=== PATIENT | female | born 1940 | race Asian ===

== ENCOUNTER 2023-01-02 09:38 | Inpatient (IN) | payer OTHER ==
[2023-01-02 10:00] VITALS: BMI 24.0
[2023-01-02 12:19] LABS: VENOUS BASE EXCESS -0.4 mmol/L (-2-2); VENOUS O2 SATURATION 83.4 % (70-80); VENOUS PCO2 42.5 mmHg (38-52); VENOUS PH 7.384 (7.310-7.410)
[2023-01-02 12:22] LABS: BASO % 0.6 % (0-2.0); EOS % 1.2 % (0-4.5); HEMATOCRIT 39.3 % (32.4-45.2); HEMOGLOBIN 13.4 GM/dL (10.7-15.3); MCHC 34.1 g/dl (32.0-36.0); MEAN CELL VOLUME 96.9 fl (80-96); MEAN PLT VOLUME 6.2 fl (7.5-11.1); MONO % 7.3 % (3.8-10.2); NEUT % 71.9 % (42.8-82.8); PLATELET COUNT 309 10^3/uL (134-434); RBC 4.06 M/mm3 (3.60-5.2); RDW 13.9 % (11.6-15.6); WHITE BLOOD COUNT 6.3 K/mm3 (4.0-10.0)
[2023-01-02 12:25] LABS: EPI CELLS 1 /uL (0-25.1); HYALINE CASTS 0 /uL (0-3.1); PH,URINE 6.5 (5.0-8.0); URINE APPEARANCE CLEAR; URINE BACTERIA 2 /uL (0-1359); URINE BILIRUBIN NEGATIVE (NEGATIVE); URINE COLOR YELLOW; URINE GLUCOSE (UA) NEGATIVE (NEGATIVE); URINE KETONE NEGATIVE (NEGATIVE); URINE LEUK ESTERASE NEGATIVE (NEGATIVE); URINE NITRITE NEGATIVE (NEGATIVE); URINE PROTEIN NEGATIVE (NEGATIVE); URINE RBC 36 /uL (0-23.9); URINE UROBILINOGEN 0.2 mg/dL (0.2-1.0); URINE WBC 1 /uL (0-25.8)
[2023-01-02 12:29] LABS: INR 0.99 (0.83-1.09); PROTHROMBIN TIME (PATIENT) 11.5 SEC (9.7-13.0)
[2023-01-02 12:31] LABS: ACTIVATED PTT 28.1 SECONDS (25.2-36.5)
[2023-01-02 13:46] LABS: ALBUMIN 3.6 g/dl (3.4-5.0); BILIRUBIN,TOTAL 0.5 mg/dL (0.2-1); BLOOD UREA NITROGEN 16.7 mg/dL (7-18); CALCIUM 9.1 mg/dL (8.5-10.1); CREATININE 0.6 mg/dL (0.55-1.3); POTASSIUM 4.8 mmol/L (3.5-5.1); TOT PROT 7.1 g/dl (6.4-8.2)
[2023-01-02 14:28] LABS: LACTIC ACID 3.5 mmol/L (0.4-2.0)
[2023-01-02 23:49] VITALS: RESP 18
[2023-01-03 08:34] LABS: BASO % 0.3 % (0-2.0); EOS % 1.6 % (0-4.5); HEMATOCRIT 42.5 % (32.4-45.2); LYMPH % 24.9 % (8-40); MCH 32.6 pg (25.7-33.7); MCHC 32.8 g/dl (32.0-36.0); MEAN CELL VOLUME 99.3 fl (80-96); MEAN PLT VOLUME 6.6 fl (7.5-11.1); MONO % 7.9 % (3.8-10.2); NEUT % 65.3 % (42.8-82.8); PLATELET COUNT 317 10^3/uL (134-434); RBC 4.28 M/mm3 (3.60-5.2); RDW 13.8 % (11.6-15.6); WHITE BLOOD COUNT 6.9 K/mm3 (4.0-10.0)
[2023-01-03 09:12] LABS: BILIRUBIN,TOTAL 0.9 mg/dL (0.2-1); TOT PROT 7.1 g/dl (6.4-8.2)
[2023-01-03 09:14] LABS: BLOOD UREA NITROGEN 10.8 mg/dL (7-18); CREATININE 0.6 mg/dL (0.55-1.3); PHOSPHOROUS 3.7 mg/dL (2.5-4.9)
[2023-01-03 09:15] LABS: ALBUMIN 3.7 g/dl (3.4-5.0); MAGNESIUM 2.2 mg/dL (1.8-2.4)
[2023-01-03] MEDS: LISINOPRIL 5 MG TABLET PO SCH (09:41)
[2023-01-03] MEDS: ENOXAPARIN NA (PORCINE) 40 MG/0.4 ML DISP.SYRIN SQ SCH (09:41)
[2023-01-03] MEDS ORDERED: MELATONIN 1 MG TABLET PO PRN (11:49)
[2023-01-03] MEDS ORDERED: SERTRALINE HCL 25 MG TABLET (FP) PO SCH (14:45)
[2023-01-03] MEDS ORDERED: MIRTAZAPINE 15 MG TABLET (FP) PO SCH (22:00)
[2023-01-03] MEDS ORDERED: QUEtiapine FUMARATE 25 MG TABLET PO SCH ×2 (22:00)
[2023-01-04 06:42] VITALS: BP 149/68; PULSE 85; TEMP 97.9
[2023-01-04 09:13] LABS: BASO % 0.4 % (0-2.0); EOS % 2.2 % (0-4.5); HEMATOCRIT 44.3 % (32.4-45.2); HEMOGLOBIN 15.2 GM/dL (10.7-15.3); LYMPH % 31.2 % (8-40); MCH 33.5 pg (25.7-33.7); MCHC 34.4 g/dl (32.0-36.0); MEAN CELL VOLUME 97.5 fl (80-96); MEAN PLT VOLUME 6.3 fl (7.5-11.1); MONO % 6.6 % (3.8-10.2); NEUT % 59.6 % (42.8-82.8); PLATELET COUNT 300 10^3/uL (134-434); RBC 4.54 M/mm3 (3.60-5.2); WHITE BLOOD COUNT 7.1 K/mm3 (4.0-10.0)
[2023-01-04] MEDS: ENOXAPARIN NA (PORCINE) 40 MG/0.4 ML DISP.SYRIN SQ SCH (09:27)
[2023-01-04] MEDS: LISINOPRIL 5 MG TABLET PO SCH (09:28)
[2023-01-04] MEDS ORDERED: SERTRALINE HCL 25 MG TABLET (FP) PO SCH (10:00)
[2023-01-04 10:15] LABS: POTASSIUM 4.4 mmol/L (3.5-5.1)
[2023-01-04 10:19] LABS: ALBUMIN 3.7 g/dl (3.4-5.0); BLOOD UREA NITROGEN 9.8 mg/dL (7-18); CALCIUM 9.6 mg/dL (8.5-10.1); MAGNESIUM 2.3 mg/dL (1.8-2.4)
[2023-01-04 10:22] LABS: CREATININE 0.8 mg/dL (0.55-1.3)
[2023-01-04 10:24] LABS: BILIRUBIN,TOTAL 0.9 mg/dL (0.2-1); TOT PROT 7.4 g/dl (6.4-8.2)
== END 2023-01-04 10:46 | disposition home or self-care (01) | DRG 881 ==
LOC: JER 09:38 → UNDOADMOB 13:36 → JERBED 13:36 → INTOOBSV 13:36 → JERBED 15:45 → J5S 17:42 → OBSVTOIN 01-03 13:36
PROVIDERS: ADMIT Internal Medicine; ATTEND Nurse Practitioner Acute Care
DX: F32.A Depression, unspecified (principal); G47.00 Insomnia, unspecified; I10 Essential (primary) hypertension
CPT/HCPCS: 0241U-QW; 36415; 70450-TC; 71045-TC-FY; 80053; 81003; 82553; 82607; 82746; 82747; 82803; 83605; 83735; 84100; 84436; 84443; 84484; 85014; 85025; 85610; 85730; 86780; 86850; 86900; 86901; 87040; 87086; 93005; 93010; 93306-TC; 97116-GP; 97162-GP; 99285-25; G0378

== ENCOUNTER 2023-01-11 11:10 | Emergency (ER) | payer OTHER ==
[2023-01-11 11:21] VITALS: BMI 25.7
[2023-01-11] MEDS ORDERED: KETOROLAC TROMETHAMINE 15 MG/ML VIAL IVPUSH ONE (11:50)
[2023-01-11] MEDS ORDERED: KETOROLAC TROMETHAMINE 15 MG/ML VIAL ONE (11:59)
[2023-01-11 13:32] LABS: BASO % 0.2 % (0-2.0); EOS % 1.3 % (0-4.5); HEMATOCRIT 36.1 % (32.4-45.2); HEMOGLOBIN 12.4 GM/dL (10.7-15.3); LYMPH % 20.9 % (8-40); MCH 33.3 pg (25.7-33.7); MCHC 34.4 g/dl (32.0-36.0); MEAN CELL VOLUME 96.8 fl (80-96); MEAN PLT VOLUME 6.6 fl (7.5-11.1); MONO % 14.3 % (3.8-10.2); NEUT % 63.3 % (42.8-82.8); PLATELET COUNT 364 10^3/uL (134-434); RBC 3.73 M/mm3 (3.60-5.2); RDW 13.6 % (11.6-15.6); WHITE BLOOD COUNT 9.1 K/mm3 (4.0-10.0)
[2023-01-11] MEDS ORDERED: methylPREDNISolone NA SUCC 125 MG/2 ML VIAL IVPUSH ONE (13:42)
[2023-01-11] MEDS ORDERED: methylPREDNISolone NA SUCC 125 MG/2 ML VIAL ONE (13:45)
[2023-01-11 14:03] LABS: CHLORIDE 95 mmol/L (98-107); SODIUM 125 mmol/L (136-145)
[2023-01-11 14:05] LABS: CALCIUM 8.4 mg/dL (8.5-10.1); CO2 24 mmol/L (21-32); GLUCOSE,RANDOM 97 mg/dL (74-106)
[2023-01-11 14:06] LABS: BLOOD UREA NITROGEN 13.6 mg/dL (7-18)
[2023-01-11 14:08] LABS: URIC ACID 3.9 mg/dL (2.6-7.2)
[2023-01-11 14:09] LABS: CREATININE 0.7 mg/dL (0.55-1.3)
[2023-01-11 14:10] LABS: TOT PROT 7.9 g/dl (6.4-8.2)
[2023-01-11 14:11] LABS: ALK PHOS 80 U/L (45-117)
[2023-01-11 14:13] LABS: ERYTHROCYTE SEDIMENTATION RATE 88 mm/hr (0-30)
[2023-01-11 14:31] VITALS: RESP 18; TEMP 98
[2023-01-11] MEDS ORDERED: SODIUM CHLORIDE 0.9% 500 ML INFUS.BAG IV ONE (14:40)
[2023-01-11 14:46] LABS: ALBUMIN 2.8 g/dl (3.4-5.0); SGOT/AST 111 U/L (15-37); SGPT/ALT 31 U/L (13-61)
[2023-01-11 17:41] LABS: CALCIUM 7.6 mg/dL (8.5-10.1)
[2023-01-11 17:42] LABS: ALBUMIN 2.8 g/dl (3.4-5.0); BLOOD UREA NITROGEN 10.8 mg/dL (7-18)
[2023-01-11 17:45] LABS: CREATININE 0.6 mg/dL (0.55-1.3)
[2023-01-11 17:47] LABS: BILIRUBIN,TOTAL 0.6 mg/dL (0.2-1)
[2023-01-11 18:23] VITALS: BP 128/68; PULSE 66
== END 2023-01-11 18:23 | disposition home or self-care (01) ==
LOC: JER 11:10
PROC: 3E033NZ Introduction of Analgesics, Hypnotics, Sedatives into Peripheral Vein, Percutaneous Approach (ICD-10-PCS; principal; 2023-01-11)
PROC: 3E033GC Introduction of Other Therapeutic Substance into Peripheral Vein, Percutaneous Approach (ICD-10-PCS; 2023-01-11)
DX: R22.41 Localized swelling, mass and lump, right lower limb (principal); M25.571 Pain in right ankle and joints of right foot; M79.671 Pain in right foot; M19.071 Primary osteoarthritis, right ankle and foot
CPT/HCPCS: 36415; 72170-TC-FY; 73562-TC-LT-FY; 73562-TC-RT-FY; 73610-TC-RT-FY; 73630-TC-RT-FY; 80053; 84550; 85025; 85651; 86140; 99284-25